=== PATIENT | female | born 1985 | race Caucasian/White ===

== ENCOUNTER → 2023-08-16 13:56 | Outpatient (REF) | payer BC, SELFPAY | LOC: WDC 13:56 | PROVIDERS: ATTENDING PHYSICIAN Nurse Practitioner Family; FAMILY PHYSICIAN Family Medicine | DX: Z12.31 Encounter for screening mammogram for malignant neoplasm of breast (principal) | CPT/HCPCS: 77063; 77067 ==

== ENCOUNTER → 2024-08-16 13:50 | Outpatient (REF) | payer BC, SELFPAY | LOC: WDC 13:50 | PROVIDERS: ATTENDING PHYSICIAN Advanced Practice Midwife; FAMILY PHYSICIAN Family Medicine | DX: Z12.31 Encounter for screening mammogram for malignant neoplasm of breast (principal) | CPT/HCPCS: 77063; 77067 ==

== ENCOUNTER 2024-09-06 15:33 | Outpatient (RCR) | payer BC, SELFPAY | END 2024-09-06 23:59 | disposition home or self-care (01) | LOC: RPT 15:33 | PROVIDERS: ATTENDING PHYSICIAN Family Medicine | DX: I89.0 Lymphedema, not elsewhere classified (principal); Z73.6 Limitation of activities due to disability; M79.605 Pain in left leg; M79.604 Pain in right leg | CPT/HCPCS: 29581; 97140; 97162; 97530; 97760; 97763 ==

== ENCOUNTER 2024-09-19 15:29 | Outpatient (RCR) | payer BC, SELFPAY | END 2024-10-08 13:25 | disposition home or self-care (01) | LOC: RPT 15:29 | PROVIDERS: ATTENDING PHYSICIAN Family Medicine | DX: I89.0 Lymphedema, not elsewhere classified (principal); Z73.6 Limitation of activities due to disability; M79.605 Pain in left leg; M79.604 Pain in right leg | CPT/HCPCS: 97530 ==